=== PATIENT | female | born 1955 | race Caucasian/White ===

== ENCOUNTER → 2016-09-15 | Outpatient (CLI) | payer BC, OTHER ==
[2016-09-15 12:01] LABS: Basophils # (A) 0.1 k/uL (0-0.2); Basophils % (A) 1 %; CH 28.1; CHCM 31.9; Eosinophils # (A) 0.1 k/uL (0-0.7); Eosinophils % (A) 1 %; HCT 46.4 % (34.0-46.0); HDW 2.49; HGB 14.5 gm/dL (11.4-16.0); Luc # (Auto) 0.16; Luc % (Auto) 2; Lymphocytes # (A) 1.6 k/uL (1.0-4.8); Lymphocytes % (A) 23 %; MCH 27.7 pg (25.0-35.0); MCHC 31.2 g/dL (31.0-37.0); MCV 88.6 fL (80.0-100.0); Mean Platelet Volume 9.8; Monocytes # (A) 0.4 k/uL (0-1.0); Monocytes % (A) 5 %; Neutrophils # (A) 4.7 k/uL (1.3-7.7); Neutrophils % (A) 67 %; RBC 5.24 m/uL (3.80-5.40); RDW 14.4 % (11.5-15.5); WBC (Perox) 6.65
[2016-09-15 12:30] LABS: ALT 42 U/L (9-52); AST 25 U/L (14-36); Alkaline Phosphatase 72 U/L (38-126); Anion Gap 12 mmol/L; Bilirubin, Delta 0.3 mg/dL (0.0-0.2); Blood Urea Nitrogen 21 mg/dL (7-17); Calcium 9.7 mg/dL (8.4-10.2); Carbon Dioxide 26 mmol/L (22-30); Chloride 105 mmol/L (98-107); Cholesterol 192 mg/dL (<200); Glucose 98 mg/dL (74-99); HDL Cholesterol 53 mg/dL (40-60); Non-African American GFR(MDRD) 59 (>60 ml/min/1.73 sqM); Potassium 4.7 mmol/L (3.5-5.1); Sodium 143 mmol/L (137-145); Total Bilirubin 0.8 mg/dL (0.2-1.3); Total Protein 7.6 g/dL (6.3-8.2); Triglycerides 84 mg/dL (<150)
== END | disposition home or self-care (01) ==
LOC: LABWHC1 10:39
PROVIDERS: ATTEND Family Medicine
DX: Z00.00 Encounter for general adult medical examination without abnormal findings (principal)
CPT/HCPCS: 36415; 80053; 80061; 82248; 84443; 85025

== ENCOUNTER → 2016-09-20 | Outpatient (CLI) | payer OTHER ==
--- NOTE | 2016-09-21 09:19 | MM ---
Reason for exam: screening (asymptomatic). Last mammogram was performed 1 year and 5 months ago. History: Patient is postmenopausal. Physical Findings: A clinical breast exam by your physician is recommended on an annual basis and results should be correlated with mammographic findings. MG Screening Mammo w CAD Bilateral CC and MLO view(s) were taken. Prior study comparison: April 30, 2015, bilateral MG screening mammo w CAD. The breast tissue is heterogeneously dense. This may lower the sensitivity of mammography. Finding: There is a 7 mm obscured round mass in the upper outer quadrant, anterior middle position of the left breast. There is no discrete abnormality. ASSESSMENT: Incomplete: need additional imaging evaluation, BI-RAD 0 RECOMMENDATION: Ultrasound of the left breast. [facility] will attempt to contact patient to return for ultrasound.
== END | disposition home or self-care (01) ==
LOC: RADMAMWWP 07:51
PROVIDERS: ATTEND Family Medicine
DX: Z12.31 Encounter for screening mammogram for malignant neoplasm of breast (principal); R92.8 Other abnormal and inconclusive findings on diagnostic imaging of breast

== ENCOUNTER → 2016-10-04 | Outpatient (CLI) | payer OTHER ==
--- NOTE | 2016-10-04 09:53 | MM ---
Reason for exam: additional evaluation requested from abnormal screening. Last mammogram was performed less than 1 month ago. History: Patient is postmenopausal. Physical Findings: Nurse did not find any significant physical abnormalities on exam. MG 3D Work Up W/Cad LT ML, spot compression MLO, and spot compression CC view(s) were taken of the left breast. Prior study comparison: September 20, 2016, bilateral MG screening mammo w CAD. April 30, 2015, bilateral MG screening mammo w CAD. There are scattered fibroglandular densities. Lobulated 8mm mass persists at 12-1 o'clock at a middle depth. These results were verbally communicated with the patient and result sheet given to the patient on 10/04/16. ASSESSMENT: Incomplete: need additional imaging evaluation, BI-RAD 0 RECOMMENDATION: Ultrasound of the left breast.
--- NOTE | 2016-10-04 09:56 | USB ---
Reason for exam: additional evaluation requested from abnormal screening. History: Patient is postmenopausal. Physical Findings: Nurse did not find any significant physical abnormalities on exam. US Breast Workup Limited LT Left breast ultrasound demonstrates a 13 x 4 x 7mm lesion at 12 o'clock, 5.3cm from nipple. Either cyst cluster, elongated complex cyst or fibrocystic change. A 6 month follow up recommended. If any suspicious changes at that time, biopsy can be performed. These results were verbally communicated with the patient and result sheet given to the patient on 10/04/16. ASSESSMENT: Probably benign, BI-RAD 3 RECOMMENDATION: Follow-up diagnostic mammogram and ultrasound (targeted 12-1 o'clock) of the left breast in 6 months. ZACKD
== END | disposition home or self-care (01) ==
LOC: RADUSWWP 08:05
PROVIDERS: ATTEND Family Medicine
DX: R92.8 Other abnormal and inconclusive findings on diagnostic imaging of breast (principal)
CPT/HCPCS: 76642; G0206; G0279

== ENCOUNTER 2020-09-21 11:00 | Emergency (ER) | payer MEDICARE, OTHER ==
[2020-09-21 11:05] VITALS: BP 155/82; PULSE 76; RESP 16; TEMP 97.9
[2020-09-21] MEDS ORDERED: MECLIZINE 12.5 MG TAB PO STA (11:21)
[2020-09-21] MEDS ORDERED: SODIUM CHLORIDE 0.9% 1,000 ML IV STA (11:21)
[2020-09-21] MEDS ORDERED: ONDANSETRON 4 MG/2 ML VIAL IVP STA (11:21)
[2020-09-21] MEDS ORDERED: DIAZEPAM 5 MG/ML 2 ML INJ IVP STA (11:21)
[2020-09-21 11:54] LABS: Basophils % (A) 0 %; Eosinophils # (A) 0.1 k/uL (0-0.7); Eosinophils % (A) 2 %; HCT 45.6 % (34.0-46.0); Lymphocytes # (A) 1.9 k/uL (1.0-4.8); Lymphocytes % (A) 24 %; MCH 28.2 pg (25.0-35.0); MCV 85.5 fL (80.0-100.0); Mean Platelet Volume 9.2; Monocytes # (A) 0.4 k/uL (0-1.0); Monocytes % (A) 6 %; Neutrophils # (A) 5.3 k/uL (1.3-7.7); Neutrophils % (A) 67 %; Platelet Count 192 k/uL (150-450); RBC 5.33 m/uL (3.80-5.40); RDW 13.9 % (11.5-15.5); WBC 7.9 k/uL (3.8-10.6)
[2020-09-21 12:05] LABS: Albumin 4.1 g/dL (3.5-5.0); Calcium 9.4 mg/dL (8.4-10.2); Potassium 3.7 mmol/L (3.5-5.1); Total Bilirubin 0.6 mg/dL (0.2-1.3); Total Protein 7.3 g/dL (6.3-8.2)
--- NOTE | 2020-09-21 12:40 | CT ---
EXAMINATION TYPE: CT brain wo con DATE OF EXAM: 09/21/2020 COMPARISON: None HISTORY: Dizziness CT DLP: 1039.4 mGycm Automated exposure control for dose reduction was used. Helical imaging through the brain. FINDINGS: There is no hemorrhage or hydrocephalus. Cortical atrophy is present. The calvarium is intact. [place] nallely sinuses and mastoid air cells are well aerated. Calcified pineal gland is noted incidentally. Orb its show symmetric appearance. No evident cerebellopontine angle mass. IMPRESSION: CORTICAL ATROPHY IS LIKELY AGE-RELATED. NO ACUTE ABNORMALITIES EVIDENT, BRAIN MRI MAY BE OF BENEFIT.
--- NOTE | 2020-09-21 13:48 | ED ---
General Adult HPI - General Chief complaint: Dizziness Stated complaint: vertigo Source: patient, RN notes reviewed Mode of arrival: wheelchair Limitations: no limitations - History of Present Illness Initial comments: 64-year-old female a past medical history of vertigo presents to the emergency room for dizziness. Patient reports that fourth at least 3 days now she has been dizzy. States she feels like the room is spinning. States it makes her feel nauseous. States she did start taking meclizine today which helped somewhat. That she has had similar symptoms in the past. States she has had these exact symptoms 10 years ago that were consistent with vertigo. She states they believe it is related to her ear. She is currently being evaluated by ENT for osteosclerosis of the left ear. Patient denies any weakness of arms legs. Denies any difficulty speaking. She does feel a little unsteady with walking.states that the dizziness worsens with head movement and from going to sitting to standing. Patient has no other complaints at this time including shortness of breath, chest pain, abdominal pain, vomiting, headache, or visual changes. - Related Data Home Medications Medication Instructions Recorded Confirmed Fluticasone Nasal [place] [Flonase 2 spr EA NOSTRIL DAILY 09/21/20 09/21/20 Nasal [place]] Previous Rx's Medication Instructions Recorded Meclizine [Antivert] 25 mg PO Q8H PRN #30 tab 09/21/20 Allergies Allergy/AdvReac Type Severity Reaction Status Date / Time No Known Allergies Allergy Verified 09/21/20 12:20 Review of Systems ROS Statement: Those systems with pertinent positive or pertinent negative responses have been documented in the HPI. ROS Other: All systems not noted in ROS Statement are negative. Past Medical History Past Medical History: No Reported History History of Any Multi-Drug Resistant Organisms: None Reported Past Surgical History: No Surgical Hx Reported Past Psychological History: No Psychological Hx Reported Smoking Status: Never smoker Past Alcohol Use History: None Reported Past Drug Use History: None Reported General Exam Limitations: no limitations General appearance: alert, in no apparent distress Head exam: Present: atraumatic, normocephalic, normal inspection Eye exam: Present: normal appearance, PERRL, EOMI. Absent: scleral icterus, conjunctival injection, periorbital swelling ENT exam: Present: normal exam, normal oropharynx, mucous membranes moist, TM's normal bilaterally, normal external ear exam Neck exam: Present: normal inspection, full ROM. Absent: tenderness, meningismus, lymphadenopathy Respiratory exam: Present: normal lung sounds bilaterally. Absent: respiratory distress, wheezes Cardiovascular Exam: Present: regular rate, normal rhythm, normal heart sounds. Absent: systolic murmur, diastolic murmur, rubs, gallop, clicks GI/Abdominal exam: Present: soft, normal bowel sounds. Absent: distended, tenderness, guarding, rebound, rigid Neurological exam: Present: alert, oriented X3, CN II-XII intact Expanded Patient oriented to: Present: person, place, time Speech: Present: fluid speech Cranial nerves: EOM's Intact: Normal, Tongue Deviation: Normal, Nystagmus: Normal, Facial Sensation: Normal Cerebellar function: Finger to Nose: Normal Upper motor neuron: Pronator Drift: Normal Sensory exam: Upper Extremity Light Touch: Normal, Upper Extremity Pin Prick: Normal, Lower Extremity Light Touch: Normal, Lower Extremity Pin Prick: Normal Motor strength exam: RUE: 5, LUE: 5, RLE: 5, LLE: 5 Kevin Total: 15 Course Vital Signs 09/21/20 11:02 Temperature 97.9 F Pulse Rate 76 Respiratory 16 Rate Blood Pressure 155/82 O2 Sat by Pulse 99 Oximetry EKG Findings - EKG Comments: EKG Findings:: Normal sinus rhythm, ventricular rate 68, CA interval 140, QTC 408 Medical Decision Making - Medical Decision Making Vitals are stable. Patient is initially lying in the exam bed and feels dizzy with opening her eyes or moving her head. No focal neurologic deficits on exam. Laboratory evaluation was initiated and was unremarkable. Slight dehydration, patient given fluids. CT brain was obtained which shows age-related cortical atrophy. No acute abnormalities. Patient had arty taken meclizine a few hours prior to arrival. She was given another dose of 25 mg as well as Valium and Zofran here in the emergency room. She had significant improvement in symptoms. She is ambulatory with normal gait. Prefers to sit up at bedside. No focal neuro deficits on repeat neuro exam. Dr. Mistry also evaluated patient. Discussed inpatient versus outpatient treatment, patient prefers outpatient management. We will write a prescription for meclizine. She'll follow up with her ENT and primary care. If she has worsening symptoms she'll return to the emergency room. Family requesting Covid test on discharge. - Lab Data Result diagrams: 09/21/20 11:50 09/21/20 11:50 Lab Results 09/21/20 09/21/20 Range/Units 11:50 11:50 WBC 7.9 (3.8-10.6) k/uL RBC 5.33 (3.80-5.40) m/uL Hgb 15.0 (11.4-16.0) gm/dL Hct 45.6 (34.0-46.0) % MCV 85.5 (80.0-100.0) fL MCH 28.2 (25.0-35.0) pg MCHC 33.0 (31.0-37.0) g/dL RDW 13.9 (11.5-15.5) % Plt Count 192 (150-450) k/uL MPV 9.2 Neutrophils % 67 % Lymphocytes % 24 % Monocytes % 6 % Eosinophils % 2 % Basophils % 0 % Neutrophils # 5.3 (1.3-7.7) k/uL Lymphocytes # 1.9 (1.0-4.8) k/uL Monocytes # 0.4 (0-1.0) k/uL Eosinophils # 0.1 (0-0.7) k/uL Basophils # 0.0 (0-0.2) k/uL Sodium 141 (137-145) mmol/L Potassium 3.7 (3.5-5.1) mmol/L Chloride 108 H (98-107) mmol/L Carbon Dioxide 26 (22-30) mmol/L Anion Gap 7 mmol/L BUN 17 (7-17) mg/dL Creatinine 1.07 H (0.52-1.04) mg/dL Est GFR (CKD-EPI)AfAm 63 (>60 ml/min/1.73 sqM) Est GFR (CKD-EPI)NonAf 55 (>60 ml/min/1.73 sqM) Glucose 95 (74-99) mg/dL Calcium 9.4 (8.4-10.2) mg/dL Total Bilirubin 0.6 (0.2-1.3) mg/dL AST 26 (14-36) U/L ALT 29 (4-34) U/L Alkaline Phosphatase 65 (38-126) U/L Total Protein 7.3 (6.3-8.2) g/dL Albumin 4.1 (3.5-5.0) g/dL Disposition Clinical Impression: Dizziness Disposition: HOME SELF-CARE Condition: Good Instructions (If sedation given, give patient instructions): Dizziness (ED) Additional Instructions: Take Meclizine as needed. Please follow up with primary care as well as ENT in 1-2 days. Please return to the emergency room for any worsening symptoms. Prescriptions: Meclizine [Antivert] 25 mg PO Q8H PRN #30 tab PRN Reason: DIZZINESS Is patient prescribed a controlled substance at d/c from ED?: No Referrals: Chito Oquendo MD [Primary Care Provider] - 1-2 days Time of Disposition: 13:46
== END 2020-09-21 14:24 | disposition home or self-care (01) ==
LOC: EC 11:00
DX: R42 Dizziness and giddiness (principal)
CPT/HCPCS: 36415; 93005; 80053; 85025; 87635; 70450; 99284; 96374; 96375; 96361; J3360; J2405

== ENCOUNTER → 2022-12-29 | Outpatient (CLI) | payer OTHER, MEDICARE ==
--- NOTE | 2022-12-29 11:00 | US ---
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 No pa in. EXAM MEASUREMENTS: Right Kidney: 8.5 x 3.8 x 4.1 cm Left Kidney: 10.0 x 4.5 x 4.4 cm Right Kidney: Appears smaller in size compared to contralateral image. Two upper pole cystic lesion with largest = 3.8 x 4.4 x 3.6 cm Left Kidney: Lower lateral pole cystic appearing lesion = 2.9 x 3.0 x 2.3 cm Bladder: Distended, anechoic Bilateral Jets seen Slightly small right kidney. Adjacent liver is heterogeneously hyperechoic suggesting fatty infiltrat ed hepatocellular disease. There is simple appearing 3.0 cm thin-walled cyst in the left kidney mid t o lower pole level. No hydronephrosis seen bilaterally. Urinary bladder is within normal limits. IMPRESSION: No hydronephrosis seen bilaterally.
== END | disposition home or self-care (01) ==
LOC: RADUSWWP 09:40
PROVIDERS: ATTEND Family Medicine
DX: N18.31 Chronic kidney disease, stage 3a (principal); I10 Essential (primary) hypertension
CPT/HCPCS: 76770